=== PATIENT | male | born 1985 | race Caucasian/White ===

== ENCOUNTER 2020-09-22 16:37 | Emergency (ER) | payer SELFPAY ==
[~2020-09-22] VITALS: Ht 177.8 cm; Wt 79.4 kg
[2020-09-22] MEDS ORDERED: LORazepam 2MG/ML-1ML VIAL IV ONE (16:45)
[2020-09-22] MEDS ORDERED: SODIUM CHLORIDE 0.9% 1,000 ML IV ONE (16:45)
[2020-09-22 17:25] LABS: Basophils # (auto) 0 10 ^3/uL (0-0.2); Basophils % (auto) 0.5 % (0.0-2.0); Eosinophils # (auto) 0 10 ^3/uL (0-0.8); Eosinophils % (auto) 0.1 % (0.0-7.0); Hematocrit 45.6 % (41.0-53.0); Hemoglobin 15.9 g/dL (13.5-17.5); Lymphocytes # (auto) 0.6 10 ^3/uL (0.4-5.4); Lymphocytes % (auto) 8.2 % (10.0-50.0); Mean Corpuscular Hemoglobin 32.1 pg (28.0-32.0); Mean Corpuscular Hgb Conc. 34.8 g/dL (32.0-36.0); Mean Corpuscular Volume 92.3 fL (80.0-100.0); Monocytes # (auto) 0.5 10 ^3/uL (0-1.3); Monocytes % (auto) 7.2 % (0.0-12.0); Neutrophils # (auto) 6.4 10 ^3/uL (1.6-8.6); Platelet Count (auto) 213 10^3/uL (140-450); Red Blood Cells 4.94 10^6/uL (4.5-5.90); Red Cell Distribution Width 13.2 % (11.8-14.3); White Blood Cell 7.6 10^3/uL (4.4-10.8)
[2020-09-22 17:50] LABS: Albumin 4.2 g/dL (3.4-5.0); Calcium 9.2 mg/dL (8.5-10.1); Potassium 3.9 mmol/L (3.5-5.1)
[2020-09-22 17:54] LABS: BUN/Creatinine Ratio 8.6; Bilirubin, Total 0.6 mg/dL (0.2-1.0); Total Protein 8.3 g/dL (6.4-8.2)
[2020-09-22 21:15] VITALS: BP 176/101
== END 2020-09-22 21:43 | disposition home or self-care (01) ==
LOC: ER 16:37
DX: F10.230 Alcohol dependence with withdrawal, uncomplicated (principal); Z20.828 Contact with and (suspected) exposure to other viral communicable diseases
CPT/HCPCS: 36415; 71045; 80053; 80320; 85025; 85379; 93005; 96361; 96374; 99285; J2060; J7030

== ENCOUNTER 2022-12-21 14:36 | Inpatient (IN) | payer MEDICAID, OTHER ==
[~2022-12-21] VITALS: Ht 182.9 cm; Wt 82.0 kg
[2022-12-21] MEDS ORDERED: LORazepam 2MG/ML-1ML VIAL ONE (14:57)
[2022-12-21] MEDS ORDERED: SODIUM CHLORIDE 0.9% 3,000 ML IV ONE (15:00)
[2022-12-21] MEDS ORDERED: SODIUM CHLORIDE 0.9% 1,000 ML IVB ONE (15:00)
[2022-12-21] MEDS ORDERED: THIAMINE 100mg/ml INJ (200mg/2ml VIAL) IV ONE (15:00)
[2022-12-21] MEDS ORDERED: LORazepam 2MG/ML-1ML VIAL IV ONE ×2 (15:00)
[2022-12-21 15:38] LABS: Calcium 8.7 mg/dL (8.5-10.1); Potassium 3.4 mmol/L (3.5-5.1)
[2022-12-21 15:40] LABS: Basophils # (auto) 0.1 10 ^3/uL (0-0.2); Basophils % (auto) 0.7 % (0.0-2.0); Eosinophils # (auto) 0 10 ^3/uL (0-0.8); Eosinophils % (auto) 0.2 % (0.0-7.0); Hematocrit 43.2 % (41.0-53.0); Lymphocytes # (auto) 0.9 10 ^3/uL (0.4-5.4); Lymphocytes % (auto) 11.6 % (10.0-50.0); Mean Corpuscular Hemoglobin 30.7 pg (28.0-32.0); Mean Corpuscular Hgb Conc. 34.7 g/dL (32.0-36.0); Mean Corpuscular Volume 88.5 fL (80.0-100.0); Monocytes # (auto) 0.3 10 ^3/uL (0-1.3); Monocytes % (auto) 4.1 % (0.0-12.0); Neutrophils # (auto) 6.2 10 ^3/uL (1.6-8.6); Neutrophils % (auto) 83.4 % (37.0-80.0); Nucleated Red Blood Cells % 0.7 %; Red Blood Cells 4.88 10^6/uL (4.5-5.90); Red Cell Distribution Width 15.5 % (11.8-14.3); White Blood Cell 7.5 10^3/uL (4.4-10.8)
[2022-12-21 15:41] LABS: Total Protein 7.8 g/dL (6.4-8.2)
[2022-12-21] MEDS ORDERED: FOLIC ACID 1 MG TAB PO ONE (21:30)
[2022-12-21] MEDS ORDERED: SODIUM CHLORIDE 0.9% 1,000 ML IV ONE (21:30)
[2022-12-21] MEDS ORDERED: NITROGLYCERIN 0.4 MG SL TAB SL PRN (21:30)
[2022-12-21] MEDS ORDERED: MULTIPLE VITAMIN TAB PO ONE (21:30)
[2022-12-21] MEDS ORDERED: MAGNESIUM SULFATE 1GM/100ML 100 ML IV ONE (21:30)
[2022-12-21] MEDS ORDERED: THIAMINE HCL 100 MG TAB PO ONE (21:30)
[2022-12-21] MEDS ORDERED: MORPHINE SULFATE INJ 2 MG/ml SYRG IV PRN (21:30)
[2022-12-21] MEDS ORDERED: POTASSIUM EFFERVESENT TAB 25 MEQ PO ONE (21:30)
[2022-12-21] MEDS ORDERED: ONDANSETRON HCL 4 MG/2 ML VIAL IV PRN (21:30)
[2022-12-21] MEDS ORDERED: PANTOPRAZOLE 40 MG/10 ML VIAL INJ IV ONE (22:00)
[2022-12-21] MEDS ORDERED: hydrALAZINE HCL 20 MG/ML VL IV PRN (22:00)
[2022-12-21] MEDS ORDERED: LISINOPRIL 20 MG TAB PO ONE (22:00)
[2022-12-21 22:32] LABS: INR 1.04 (0.9-1.15)
[2022-12-21 22:34] LABS: Magnesium 1.8 mg/dL (1.6-2.6)
[2022-12-21] MEDS: chlordiazePOXIDE HCL 25 MG CAP PO ONE ×2 (23:39→23:45)
[2022-12-22 01:37] LABS: Amphetamine Screen, Urine NEGATIVE (NEGATIVE); Barbiturate Scree,Urine NEGATIVE (NEGATIVE); Benzodiazephine Screen, Urine NEGATIVE (NEGATIVE); Cannabinoid Screen, Urine NEGATIVE (NEGATIVE); Cocaine Screen, Urine NEGATIVE (NEGATIVE); Opiate Scree,Urine NEGATIVE (NEGATIVE); Phencyclidine Screen, Urine NEGATIVE (NEGATIVE)
[2022-12-22 01:43] LABS: Urine Bacteria NONE SEEN /hpf (None Seen); Urine Blood Negative /uL (Negative); Urine Mucus FEW (None Seen); Urine Specific Gravity 1.015 (1.001-1.035); Urine WBC 1 /hpf (0 - 3)
[2022-12-22 04:51] LABS: Basophils # (auto) 0.1 10 ^3/uL (0-0.2); Basophils % (auto) 0.7 % (0.0-2.0); Eosinophils # (auto) 0.1 10 ^3/uL (0-0.8); Hematocrit 43.9 % (41.0-53.0); Hemoglobin 14.9 g/dL (13.5-17.5); Lymphocytes # (auto) 1.5 10 ^3/uL (0.4-5.4); Lymphocytes % (auto) 19.9 % (10.0-50.0); Mean Corpuscular Hemoglobin 30.9 pg (28.0-32.0); Mean Corpuscular Hgb Conc. 33.9 g/dL (32.0-36.0); Mean Corpuscular Volume 91.1 fL (80.0-100.0); Monocytes # (auto) 0.4 10 ^3/uL (0-1.3); Monocytes % (auto) 5.5 % (0.0-12.0); Neutrophils # (auto) 5.6 10 ^3/uL (1.6-8.6); Neutrophils % (auto) 72.9 % (37.0-80.0); Red Blood Cells 4.82 10^6/uL (4.5-5.90); Red Cell Distribution Width 15.5 % (11.8-14.3); White Blood Cell 7.7 10^3/uL (4.4-10.8)
[2022-12-22 05:06] LABS: Albumin 3.7 g/dL (3.4-5.0); BUN/Creatinine Ratio 6.1 (10.0-20.0); Calcium 8.7 mg/dL (8.5-10.1); Potassium 3.9 mmol/L (3.5-5.1)
[2022-12-22 05:09] LABS: Bilirubin, Total 2.1 mg/dL (0.2-1.0); Total Protein 7.4 g/dL (6.4-8.2)
[2022-12-22] MEDS: LORazepam 2MG/ML-1ML VIAL IV PRN ×2 (05:32→10:14)
[2022-12-22] MEDS: FOLIC ACID 1 MG, MULTIPLE VITAMIN 10 ML, MAGNESIUM SULF SDV 50% 8 MEQ, THIAMINE INJ 100... INJ SCH ×10 (09:15→12:00)
[2022-12-22] MEDS ORDERED: FOLIC ACID 1 MG TAB PO SCH (10:00)
[2022-12-22] MEDS ORDERED: LISINOPRIL 20 MG TAB PO SCH (10:00)
[2022-12-22] MEDS ORDERED: THIAMINE HCL 100 MG TAB PO SCH (10:00)
[2022-12-22] MEDS ORDERED: MULTIPLE VITAMIN TAB PO SCH (10:00)
[2022-12-22 10:10] LABS: Hepatitis B Surface Antibody Positive (Negative)
[2022-12-22] MEDS: PANTOPRAZOLE 40 MG/10 ML VIAL INJ IV SCH (10:13)
[2022-12-22] MEDS: ENOXAPARIN SOD 40 MG/0.4 ML SYRINGE SC SCH (10:14)
[2022-12-22] MEDS: METOPROLOL SUCCINATE XL 50 MG TAB PO SCH (10:15)
[2022-12-22 10:46] LABS: Hepatitis A Total Antibody Negative (Negative)
[2022-12-22 12:02] LABS: Hepatitis C Antibody Negative (Negative)
[2022-12-22] MEDS ORDERED: chlordiazePOXIDE HCL 5 MG CAP PO PRN (13:30)
[2022-12-22] MEDS ORDERED: ALPRAZolam 0.25 MG TAB PO PRN (13:45)
[2022-12-22] MEDS ORDERED: GABA300C10 PO (20:05)
[2022-12-22 22:30] VITALS: BP 150/91
[2022-12-23 00:08] VITALS: BP 147/89
[2022-12-23 05:02] VITALS: BP 132/92
[2022-12-23 08:30] VITALS: BP 134/88
[2022-12-23] MEDS: PANTOPRAZOLE 40 MG/10 ML VIAL INJ IV SCH (09:42)
[2022-12-23] MEDS: METOPROLOL SUCCINATE XL 50 MG TAB PO SCH (09:43)
[2022-12-23] MEDS: ENOXAPARIN SOD 40 MG/0.4 ML SYRINGE SC SCH (09:43)
[2022-12-23 13:00] VITALS: BP 136/95
[2022-12-23] MEDS: FOLIC ACID 1 MG, MULTIPLE VITAMIN 10 ML, MAGNESIUM SULF SDV 50% 8 MEQ, THIAMINE INJ 100... INJ SCH ×5 (14:47)
[2022-12-23 16:30] VITALS: BP 131/86
[2022-12-23 22:00] VITALS: BP 144/99
[2022-12-24] VITALS: BP 138/95
[2022-12-24 05:00] VITALS: BP 134/85
[2022-12-24 09:00] VITALS: BP 137/96
[2022-12-24] MEDS: PANTOPRAZOLE 40 MG/10 ML VIAL INJ IV SCH (09:40)
[2022-12-24] MEDS: ENOXAPARIN SOD 40 MG/0.4 ML SYRINGE SC SCH (09:40)
[2022-12-24] MEDS: METOPROLOL SUCCINATE XL 50 MG TAB PO SCH (09:41)
[2022-12-24] MEDS: FOLIC ACID 1 MG, MULTIPLE VITAMIN 10 ML, MAGNESIUM SULF SDV 50% 8 MEQ, THIAMINE INJ 100... INJ SCH ×5 (12:27)
[2022-12-24 13:00] VITALS: BP 144/98
[2022-12-24 17:00] VITALS: BP 151/94
[2022-12-24] MEDS ORDERED: LORazepam 2MG/ML-1ML VIAL IV PRN (20:00)
[2022-12-24] MEDS: MIRTAZAPINE 30 MG TAB PO SCH (21:32)
[2022-12-24 22:00] VITALS: BP 138/93
[2022-12-25 05:00] VITALS: BP 133/88
[2022-12-25 06:47] LABS: Albumin 3.5 g/dL (3.4-5.0); Potassium 3.9 mmol/L (3.5-5.1)
[2022-12-25 06:50] LABS: BUN/Creatinine Ratio 17.3 (10.0-20.0); Bilirubin, Total 0.6 mg/dL (0.2-1.0); Total Protein 7.4 g/dL (6.4-8.2)
[2022-12-25 09:00] VITALS: BP 125/77
[2022-12-25] MEDS: METOPROLOL SUCCINATE XL 50 MG TAB PO SCH (10:18)
[2022-12-25 13:00] VITALS: BP 133/83
[2022-12-25] MEDS: FOLIC ACID 1 MG, MULTIPLE VITAMIN 10 ML, MAGNESIUM SULF SDV 50% 8 MEQ, THIAMINE INJ 100... INJ SCH ×5 (13:23)
[2022-12-25 17:00] VITALS: BP 134/86
[2022-12-25] MEDS: MIRTAZAPINE 30 MG TAB PO SCH (21:42)
[2022-12-25 22:00] VITALS: BP 138/86
[2022-12-26 05:00] VITALS: BP 121/76
[2022-12-26 06:33] LABS: Albumin 3.6 g/dL (3.4-5.0); Calcium 9.1 mg/dL (8.5-10.1); Potassium 4.1 mmol/L (3.5-5.1)
[2022-12-26 06:46] LABS: Bilirubin, Total 0.4 mg/dL (0.2-1.0); Total Protein 7.3 g/dL (6.4-8.2)
[2022-12-26 09:00] VITALS: BP 137/91
[2022-12-26] MEDS: METOPROLOL SUCCINATE XL 50 MG TAB PO SCH (09:16)
[2022-12-26] MEDS ORDERED: METO-6 PO (11:11)
[2022-12-26] MEDS ORDERED: MIR30T PO (11:11)
[2022-12-26] MEDS: FOLIC ACID 1 MG, MULTIPLE VITAMIN 10 ML, MAGNESIUM SULF SDV 50% 8 MEQ, THIAMINE INJ 100... INJ SCH ×5 (11:36)
[2022-12-26 16:11] LABS: Hepatitis C Antibody Negative (Negative)
== END 2022-12-26 13:29 | disposition home or self-care (01) | DRG 201 ==
LOC: ER 14:36 → EDBD 14:36 → TELE 21:43 → TELE-WESTW 12-22 18:46
PROVIDERS: ADMIT Registered Nurse; ATTEND Nurse Practitioner Acute Care
DX: I47.1 Supraventricular tachycardia (principal); F33.1 Major depressive disorder, recurrent, moderate; F10.239 Alcohol dependence with withdrawal, unspecified; I16.0 Hypertensive urgency; E78.5 Hyperlipidemia, unspecified; E87.6 Hypokalemia; F10.229 Alcohol dependence with intoxication, unspecified; Z20.822 Contact with and (suspected) exposure to COVID-19; F12.90 Cannabis use, unspecified, uncomplicated; F41.9 Anxiety disorder, unspecified; I10 Essential (primary) hypertension; Z79.899 Other long term (current) drug therapy; Z82.49 Family history of ischemic heart disease and other diseases of the circulatory system; Z83.3 Family history of diabetes mellitus
CPT/HCPCS: 36415; 71045; 76705; 80053; 80061; 80307; 80320; 81001; 82150; 82977; 83036; 83690; 83735; 84443; 85025; 85610; 85730; 86704; 86706; 86708; 86803; 87340; 87426; 93005; 93306; 96374; 96375; C9113; G0378; J2405